=== PATIENT | female | born 1980 | race Caucasian/White ===

== ENCOUNTER 2016-07-25 16:34 | Emergency (ER) | payer BC ==
--- NOTE | ~2016-07-25 | EKG ---
PATIENT: LARISSA AKBAR UNIT #: [id number] Ventricular Rate: 125 BPM Atrial Rate: 125 BPM P-R Interval: 140 ms QRS Duration: 98 ms Q-T Interval: 330 ms QTC Calculation(Bezet): 476 ms P [place]: 50 degrees Calculated R [place]: 46 degrees Calculated T [place]: 38 degrees Diagnosis Line: Sinus tachycardia Diagnosis Line: Nonspecific ST abnormality Diagnosis Line: Abnormal ECG Diagnosis Line: Diagnosis Line: Confirmed by BETH BALL MD ([id number]) on Diagnosis Line: 07/30/2016 8:50:07 AM INTERPRETING MD: LIZZY ALANIS
--- NOTE | ~2016-07-25 | CR63 ---
[facility] A Service of [facility] RADIOLOGY TEXT RESULTS PATIENT: LARISSA AKBAR LOCATION: SED : 78 UNIT #: [id number] AGE: [address]: Jesusita Borrero APRN SEX: F ORDER DR: [id number] [address] [address] [id number] E MR#: [id number] Acc #: [id number] NAME: LARISSA AKBAR : 1980 SEX: F STUDY DATE/TIME: 07/25/2016 18:17 UNIT: SED ROOM: STUDY DESCRIPTION: CR Chest 2 View Attending Physician: Jesusita Borrero A.P.R.N. Referring Physician: Jesusita Borrero A.P.R.N. Ordering Physician: Jesusita Borrero A.P.R.N. Primary Care Physician: Da Frazier Jr., M.D. MEDICAL IMAGING REPORT This report is preliminary unless electronic signature is present. EXAM Two-view chest HISTORY 35-year-old female chest pain, palpitations x2 days. History of anxiety, panic attacks. COMPARISON 06/24/2013. FINDINGS PA and lateral examination of the chest upright shows a good expansion of the parenchyma with a normal distribution of the pulmonary vascularity. There is no indication of congestion, effusion, infiltrate, tumor, or nodular density. The pleural reflections and diaphragmatic contours are normal. The cardiac silhouette and mediastinal anatomy is within normal limits. IMPRESSION Normal chest. Dictated by... Segun Gonzales M.D. THIS IS AN ELECTRONICALLY VERIFIED REPORT Segun Gonzales M.D. at 07/28/2016 6:06 AM ALEYDA/ruperto TD: 07/25/2016 22:53 JOB #: [id number] [facility] A Service of [facility] RADIOLOGY TEXT RESULTS PATIENT: LARISSA AKBAR LOCATION: SED : 78 UNIT #: [id number] AGE: [address]: Jesusita Borrero APRN SEX: F ORDER DR: MEDICAL IMAGING REPORT Page 1 of 1
[~2016-07-25 16:34] MED LIST: ALPRAZOLAM PO; BENTYL20 MG PO; CELEXA10 MG PO; CYMBALTA PO; DELTASONE20 MG PO; DICYCLOMINE HCL20 MG PO; KLONOPIN0.5 MG PO; KLONOPIN1 MG PO; LIDOCAINE HC20 MG/M1 PO; MECLIZINE HCL25 M1 PO; NABUMETONE PO; NO MEDICATIONS; PHENERGAN25 MG PO; PRENATAL1 TA1 PO; PRILOSEC20 MG PO; WESTCORT15 GM TOP; XANAX0.5 MG PO; ZANTAC PO
[2016-07-25] MEDS ORDERED: ZOLOFT PO (16:55)
[2016-07-25] MEDS ORDERED: OMEPRAZOLE20 M1 PO (16:56)
[2016-07-25] MEDS ORDERED: ZESTORETIC PO (16:57)
[2016-07-25] MEDS ORDERED: GLUCOPHAGE500 MG PO (16:58)
[2016-07-25 17:27] LABS: BASOPHIL# 0.1 X10e3 (0-0.3); BASOPHIL% 0.6 % (0-2.5); EOSINOPHIL# 0.2 X10e3 (0-0.7); EOSINOPHIL% 2.1 % (0.0-7.0); HEMOGLOBIN 11.9 gm/dL (12.0-16.0); LYMPHOCYTE# 2.5 X10e3 (1.0-3.5); LYMPHOCYTE% 24.1 % (17.0-45.0); MEAN CORPUSCULAR HEMOGLOBIN 20.9 PG (28-34); MEAN CORPUSCULAR HGB CONC 32.2 g/dL (30-36); MEAN PLATELET VOLUME 7.6 FL (6.5-11.5); MONOCYTE# 0.5 X10e3 (0-1.0); MONOCYTE% 5.2 % (3.0-12.0); NEUTROPHIL# 7.1 X10e3 (1.5-7.1); PLATELET COUNT 363 X10e3 (140-420); RED BLOOD COUNT 5.69 X10e (3.90-5.30); RED CELL DISTRIBUTION WIDTH 19.6 % (11.0-15.5); WHITE BLOOD COUNT 10.5 X10e3 (4.0-10.5)
[2016-07-25 17:45] LABS: POC - CKMB 1.2 ng/mL (0.0-7.9); POC - TROPONIN <0.05 ng/mL (<=0.05)
[2016-07-25 17:45] LABS: DIFF IND NO
[2016-07-25 17:50] LABS: URINE SOURCE CLEAN CATCH
[2016-07-25 17:54] LABS: ALBUMIN SERUM 5.1 g/dL (3.5-5.0); BILIRUBIN,TOTAL 0.3 mg/dL (0.2-2.0); BUN/CREATININE RATIO 14.28; CALCIUM SERUM 9.3 mg/dL (8.4-10.2); CREATININE SERUM 0.7 mg/dL (0.6-1.4); GLOM FILT RATE Estimated 111.5 mL/min (>60); POTASSIUM 3.3 mmol/L (3.5-5.1); PROTEIN TOTAL SERUM 9.7 g/dL (6.0-8.3)
[2016-07-25 18:01] LABS: MICRO INDICATED? NO; URINE APPEARANCE CLEAR; URINE BILIRUBIN NEG (NEG); URINE BLOOD NEG (NEG); URINE COLOR YELLOW; URINE GLUCOSE NEG (NORM); URINE KETONE NEG (NEG); URINE LEUKOCYTE ESTERASE NEG (NEG); URINE NITRATE NEG (NEG); URINE PH 5.5 (5-8); URINE PROTEIN NEG (NEG); URINE UROBILINOGEN 0.2 MG/DL (NORM)
[2016-07-25 18:11] LABS: AMPHETAMINE NEG (NEG); BARBITURATES NEG (NEG); BENZODIAZEPINES POS (NEG); COCAINE NEG (NEG); MARIJUANA NEG (NEG); OPIATES NEG (NEG); TRICYCLIC ANTIDEPRESSANTS NEG (NEG); U METHADONE NEG (NEG)
== END 2016-07-25 19:28 | disposition home or self-care (01) ==
LOC: SED 16:34
PROVIDERS: Nurse Practitioner Family
DX: F41.9 Anxiety disorder, unspecified (principal); Z91.040 Latex allergy status; Z90.49 Acquired absence of other specified parts of digestive tract; Z79.899 Other long term (current) drug therapy
CPT/HCPCS: 36415; 71020; 80053; 80307; 81003; 82553; 82947; 83880; 84484; 84703; 85025; 85379; 93005; 99283